=== PATIENT | male | born 1955 | race Caucasian/White ===

== ENCOUNTER 2016-08-18 16:31 | Inpatient (IN) | payer OTHER ==
[~2016-08-18] VITALS: Ht 177.8 cm; Wt 95.3 kg
[2016-08-18 17:57] LABS: HEMOGLOBIN 15.6 gm/dl (14.0-17.5); RED BLOOD COUNT 5.08 M/UL (4.20-5.50); WHITE BLOOD COUNT 7.8 K/UL (4.5-11.0)
[2016-08-18] MEDS ORDERED: ASPIR 8181 MG PO (18:03)
[2016-08-18] MEDS ORDERED: GLYBURIDE-METF1 EACH PO (18:03)
[2016-08-18] MEDS ORDERED: TOPROL XL50 MG PO (18:04)
[2016-08-18] MEDS ORDERED: LASIX20 MG PO (18:04)
[2016-08-18] MEDS ORDERED: POTASSIUM CHLO10 MEQ PO (18:04)
[2016-08-18] MEDS ORDERED: PREVACID 30 MG30 MG PO (18:05)
[2016-08-18 18:12] LABS: BUN/CREATININE RATIO 14 (0-10)
[2016-08-19 05:20] LABS: HEMOGLOBIN 14.7 gm/dl (14.0-17.5); RED BLOOD COUNT 4.81 M/UL (4.20-5.50)
[2016-08-19 05:50] LABS: BUN/CREATININE RATIO 17 (0-10)
[2016-08-20 04:38] LABS: HEMOGLOBIN 13.9 gm/dl (14.0-17.5); RED BLOOD COUNT 4.61 M/UL (4.20-5.50); WHITE BLOOD COUNT 6.8 K/UL (4.5-11.0)
[2016-08-20 05:14] LABS: BUN/CREATININE RATIO 18 (0-10)
[2016-08-20] MEDS ORDERED: SOTALOL80 MG PO (12:26)
[2016-08-20] MEDS ORDERED: ELIQUIS5 MG PO (12:27)
[2016-08-20] MEDS ORDERED: ACCUPRIL 10 MG10 MG PO (12:32)
== END 2016-08-20 13:44 | disposition home or self-care (01) | DRG 309 ==
LOC: PROG CARE 16:31
PROVIDERS: ADMIT Internal Medicine
PROC: 5A2204Z Restoration of Cardiac Rhythm, Single (ICD-10-PCS; principal; 2016-08-19)
PROC: B246ZZ4 Ultrasonography of Right and Left Heart, Transesophageal (ICD-10-PCS; 2016-08-19)
DX: I48.91 Unspecified atrial fibrillation (principal); I31.3 Pericardial effusion (noninflammatory); I48.92 Unspecified atrial flutter; I10 Essential (primary) hypertension; E11.9 Type 2 diabetes mellitus without complications; I27.2 Other secondary pulmonary hypertension; I34.0 Nonrheumatic mitral (valve) insufficiency; E78.5 Hyperlipidemia, unspecified; K21.9 Gastro-esophageal reflux disease without esophagitis; E55.9 Vitamin D deficiency, unspecified; M10.9 Gout, unspecified; E66.3 Overweight; Z87.891 Personal history of nicotine dependence; Z91.14 Patient's other noncompliance with medication regimen; Z72.3 Lack of physical exercise; Z68.30 Body mass index [BMI] 30.0-30.9, adult; Z79.84 Long term (current) use of oral hypoglycemic drugs; Z79.82 Long term (current) use of aspirin; Z79.899 Other long term (current) drug therapy; Z82.49 Family history of ischemic heart disease and other diseases of the circulatory system; Z83.2 Family history of diseases of the blood and blood-forming organs and certain disorders involving the immune mechanism
CPT/HCPCS: 36415; 71010; 80048; 80053; 82550; 82553; 82962; 84439; 84443; 84484; 85025; 85027; 93005; 93312; 93320; J1200; J2250; J2270

== ENCOUNTER → 2020-07-17 | Outpatient (CLI) | payer OTHER ==
[~2020-07-17] MED LIST: ACCUPRIL 10 MG10 MG PO; ACCUPRIL40 MG PO; ALLOPURINOL100 MG PO; ASPIR 8181 MG PO; COREG 3.125M3.125 MG PO; ELIQUIS5 MG PO; GLYBURIDE-METF1 EACH PO; HCTZ PO; LASIX20 MG PO; POTASSIUM CHLO10 MEQ PO; PREVACID 30 MG30 MG PO; SOTALOL80 MG PO; TOPROL XL50 MG PO
== END ==
LOC: EXRD 08:51
DX: M11.20 Other chondrocalcinosis, unspecified site (principal); M13.0 Polyarthritis, unspecified; R76.8 Other specified abnormal immunological findings in serum; M25.742 Osteophyte, left hand; M25.741 Osteophyte, right hand
CPT/HCPCS: 73130